=== PATIENT | male | born 1990 | race Caucasian/White ===

== ENCOUNTER 2016-09-12 11:59 | Emergency (ER) ==
[~2016-09-12] VITALS: Ht 175.3 cm; Wt 77.6 kg
== END 2016-09-12 12:39 | disposition left against medical advice (07) ==
LOC: M ED 12:34
DX: Z20.2 Contact with and (suspected) exposure to infections with a predominantly sexual mode of transmission (principal); Z53.29 Procedure and treatment not carried out because of patient's decision for other reasons

== ENCOUNTER 2016-12-11 12:36 | Inpatient (IN) | payer OTHER ==
[~2016-12-11] VITALS: Ht 177.8 cm; Wt 77.3 kg
[2016-12-11 13:44] LABS: MEAN CORPUSCULAR HEMOGLOBIN 32.6 pg (27.0-33.0); MEAN CORPUSCULAR HGB CONC 35.3 g/dl (32.0-36.5); MEAN CORPUSCULAR VOLUME 92.2 fl (80.0-96.0); RED CELL DISTRIBUTION WIDTH 12.5 % (11.5-14.5); WHITE BLOOD COUNT 5.8 K/mm3 (4.0-10.0)
[2016-12-11 14:13] LABS: METHADONE URINE NEGATIVE (NEGATIVE)
[2016-12-11 14:19] LABS: ALBUMIN 4.3 GM/DL (3.2-5.2); ALBUMIN/GLOBULIN RATIO 1.19 (1.00-1.93); ALKALINE PHOSPHATASE 99 U/L (45-117); ALT/SGPT 50 U/L (12-78); ANION GAP 12 MEQ/L (8-16); AST/SGOT 23 U/L (15-37); BILIRUBIN,DIRECT 0.4 MG/DL (0.0-0.2); BILIRUBIN,TOTAL 2.4 MG/DL (0.2-1.0); BLOOD UREA NITROGEN 15 MG/DL (7-18); CALCIUM LEVEL 9.2 MG/DL (8.5-10.1); CARBON DIOXIDE LEVEL 24 MEQ/L (21-32); CHLORIDE LEVEL 105 MEQ/L (98-107); CREATININE FOR GFR 1.22 MG/DL (0.70-1.30); GLOMERULAR FILTRATION RATE > 60.0 (>60); GLUCOSE, FASTING 87 MG/DL (70-105); POTASSIUM SERUM 3.7 MEQ/L (3.5-5.1); SODIUM LEVEL 141 MEQ/L (136-145); TOTAL PROTEIN 7.9 GM/DL (6.4-8.2)
[2016-12-11] MEDS ORDERED: MAALOX 30 ML SUSP *UDC PO PRN (15:45)
[2016-12-11] MEDS ORDERED: MOM 30ML SUSPENSION UDC PO PRN (15:45)
[2016-12-11 16:32] VITALS: BP 134/64
[2016-12-11] MEDS: SERTRALINE HCL 50 MG TAB PO SCH (17:23)
[2016-12-11] MEDS: NICOTINE 14 MG/24 HR TRANSDERMAL TD SCH (17:57)
[2016-12-11] MEDS: traZODone 50 MG TAB PO PRN (21:20)
[2016-12-12 06:28] VITALS: BP 140/63
[2016-12-12] MEDS: SERTRALINE HCL 50 MG TAB PO SCH (08:08)
[2016-12-12] MEDS: NICOTINE 14 MG/24 HR TRANSDERMAL TD SCH (08:08)
[2016-12-12 18:00] VITALS: BP 130/64
[2016-12-12] MEDS: traZODone 50 MG TAB PO PRN (22:27)
[2016-12-13 06:00] VITALS: BP 108/57
[2016-12-13 07:43] LABS: ALBUMIN 3.6 GM/DL (3.2-5.2); ALBUMIN/GLOBULIN RATIO 1.16 (1.00-1.93); BILIRUBIN,DIRECT 0.2 MG/DL (0.0-0.2); BILIRUBIN,TOTAL 1.1 MG/DL (0.2-1.0); TOTAL PROTEIN 6.7 GM/DL (6.4-8.2)
[2016-12-13] MEDS: SERTRALINE HCL 50 MG TAB PO SCH (08:20)
[2016-12-13] MEDS: NICOTINE 14 MG/24 HR TRANSDERMAL TD SCH (08:20)
--- NOTE | 2016-12-13 09:11 | MHHPE ---
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 The patient presented to the clinic at [facility] and stated that he was having suicidal thoughts with plans of overdosing on aspirin. The patient indicated that he has been feeling depressed for the past few months, but it is worse for the past 4-5 weeks. He states that he is feeling hopeless and helpless. Mood is about an 8/10, where the closer to 10 is the most depressed. He is having difficulty focusing and concentrating, but he is sleeping okay, but he says he is always waking up angry and irritable. Today, he is denying suicidal ideations, and he says that the thoughts just happened on two occasions , and they were brief. He describes ongoing stress. He says that grandparents who actually raised him came to visit him recently, and this is when he noticed that his grandmother's dementia has really progressed, and it is pretty severe now, as she could not even recognize him at times. There has been increased workload at work. In addition, he recently broke up with his girlfriend. They were together for 6 months, but he feels that his major stressor is that of his grandmother. The patient, more than usual for the past 3-4 days, since 12/08/2016, he admits that sometimes intoxication. The patient says that normally he will have one or two beers at most after he comes home from work. He does not think he has a problem. Apparently, the patient's feed inspection supervisor had indicated in the emergency room that she had seen a video of the patient this weekend; and apparently, the patient was very intoxicated. I did not elicit any hypomanic or manic or posttraumatic stress disorder (PTSD) or panic-like symptoms in this patient. PAST PSYCHIATRIC HISTORY: This patient has no prior history of psychiatric treatments, inpatient or outpatient. He has never made any suicide attempts. FAMILY HISTORY: This is negative for any psychiatric problems in his family. ABUSE HISTORY: The patient denies any history of any physical or sexual abuse. SUBSTANCE ABUSE HISTORY: This is as noted above. He does not think that he has a problem. MEDICAL HISTORY: The patient denies any problems. REVIEW OF SYSTEMS: The patient is dressed in hospital garments and appeared to be intact. NEUROMUSCULAR SYSTEM: There are no involuntary movements noted, and his gait was normal. All other systems were reviewed and found to be negative. VITAL SIGNS: Blood pressure 140/63, pulse 80, respirations 18. MENTAL STATUS EXAMINATION: This patient is alert and oriented times three. Eye contact is fairly good. Verbally spontaneous. There is no formal thought disorder noted. Psychomotor activity is normal. He says his mood is very depressed. His affect is full range and appropriate. He is not psychotic. He denies suicidal ideations today. He is denying homicidal ideations. Concentration is fair. Memory is intact. Insight and judgment poor. DIAGNOSIS: Major depressive disorder, single episode, severe, without psychotic symptoms. TREATMENT PLAN: At this point, we will further observe and evaluate this patient for continued resolution of suicidal ideations. We will continue to monitor this patient for continued depression. He has already been started on Zoloft 50 mg every day for his depression and anxiety, and we will titrate it as indicated, and we will treat him with trazodone 50 mg nightly as needed for insomnia; and the plan will be to discharge him with appropriate followup once stable. ERIN
--- NOTE | 2016-12-13 14:17 | HPE ---
DATE OF ADMISSION: 12/11/2016 HISTORY OF PRESENT ILLNESS: Please refer to the psychiatric history and evaluation for further details on this admission. This examination and history is intended for medial issues which may need treatment, followup, or consult on this 25-year-old male. ALLERGIES: No known allergies. PRIMARY CARE PROVIDER: Sabine Manning. 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 Smokes 1/2 pack of cigarettes per day. Recreational drug use; none. PAST MEDICAL HISTORY: Negative. PAST SURGICAL HISTORY: Negative. HOME MEDICATIONS: None. FAMILY HISTORY: Noncontributory. LABORATORY STUDIES: CBC normal. Electrolytes normal. Total bilirubin 2.4. Toxicology negative. 10-systems review is done, was unremarkable. Patient had no complaints. PHYSICAL EXAMINATION: 25-year-old cooperative male, no acute distress. Height 70 inches, weight is 71.4 kg, body mass index (BMI) 22.8, blood pressure 127/69, pulse 68, respirations 18, temperature 97.4. Patient is alert and oriented times three. Pupils equal and reactive to light. Extraocular muscles intact. Cornea and sclerae clear. Conjunctivae normal. No facial asymmetry. Pharynx, tongue, gums pink and moist. Tongue is midline. NECK: Is supple without lymphadenopathy or thyromegaly. No goiter. Carotids 2+ without bruit. CHEST: Clear to auscultation without wheeze or retraction. HEART: Is regular. ABDOMEN: Benign. Bowel sounds positive. GENITOURINARY ()/RECTAL: Not done. EXTREMITIES: Show equal strength, full range of motion. No cyanosis, clubbing, or edema. Peripheral pulses equal and palpable bilaterally. SKIN: Is warm and dry. IMPRESSION/PLAN: Psychiatric plan per psychiatry. No acute medical issues.
[2016-12-13 18:00] VITALS: BP 115/53
[2016-12-13] MEDS: busPIRone 10 MG TAB PO SCH (21:27)
[2016-12-13] MEDS: traZODone 100 MG TAB PO PRN (21:27)
--- NOTE | 2016-12-14 02:49 | IPN ---
DATE OF SERVICE: 12/13/2016 The patient today states that he is still feeling very depressed. Also did not sleep well last night. Did sleep better he says with the increase in the trazodone, he slept until about 4:30. At this point, he is still depressed. MENTAL STATUS EXAMINATION: He is alert and oriented times three. Eye contact is fair. Psychomotor activity is normal. He is verbally spontaneous. There is no formal thought disorder noted. Mood is depressed. Affect is full range and appropriate. Concentration is fair. Memory is intact. Insight and judgment is poor. DIAGNOSIS: Major depressive disorder, single episode, moderate to severe. TREATMENT PLAN: The patient will be further observed and evaluated for depressive symptomatology and further stabilization of his mood and further resolution of suicidal ideation. He was just started on Zoloft and so we will await further clinical response. The plan is to discharge him with appropriate followup once he is stable.
[2016-12-14 06:45] VITALS: BP 134/63
[2016-12-14] MEDS: SERTRALINE HCL 50 MG TAB PO SCH (08:13)
[2016-12-14] MEDS: busPIRone 10 MG TAB PO SCH ×2 (08:13→21:21)
[2016-12-14] MEDS: NICOTINE 14 MG/24 HR TRANSDERMAL TD SCH (08:14)
--- NOTE | 2016-12-14 17:26 | IPN ---
DATE: 12/14/2016 David Duke (Charles). VITAL SIGNS: Temperature 98.2, pulse 72, respirations 16, blood pressure 134/63. 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 The patient has been troubled by depression and suicidal ideation for approximately 3 months. He has had multiple stressors recently. His girlfriend just broke up with him. He just found out that his elderly grandmother is suffering from severe dementia; it was a big shock. He is worried about his father down in [place] who is a quadriplegic. The patient is not sleeping well. He has trouble falling asleep and staying asleep. He does have temper issues, which led to the break up with the girlfriend. His appetite is poor. He has lost 10 pounds recently. Concentration is poor at the job. The patient was started on Zoloft last week with minimal benefit. He would like to increase the dose, which appears reasonable. His father is on Zoloft and doing well. Another option might be switching to Effexor if the Zoloft is not effective. The patient was hearing some voices temporarily when he was more depressed and suicidal. The voices were telling him that he is worthless and that life is no good. Psychotic symptoms have resolved, however. MENTAL STATUS EXAMINATION: The patient is alert, oriented and cooperative. The patient appears anxious. Mood is mildly to moderately depressed. He is not suicidal. He is not homicidal. Insight and judgment appear reasonably good. The patient did have recent auditory hallucinations but not currently at this moment. No signs of paranoia or thought disorder. No signs of organicity. Grooming and hygiene is good. DIAGNOSIS: Major depression, single episode with brief psychotic symptoms. PLAN: Increase Zoloft to 100 mg every morning If psychotic symptoms return, adding low-dose Risperdal antipsychotic would be in order.
[2016-12-14 18:00] VITALS: BP 119/56
[2016-12-14] MEDS: traZODone 100 MG TAB PO PRN (22:40)
[2016-12-15 06:29] VITALS: BP 131/63
[2016-12-15] MEDS: NICOTINE 14 MG/24 HR TRANSDERMAL TD SCH (08:30)
[2016-12-15] MEDS: SERTRALINE HCL 50 MG TAB PO SCH (08:31)
[2016-12-15] MEDS: busPIRone 10 MG TAB PO SCH ×2 (08:31→21:06)
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
[2016-12-15 18:00] VITALS: BP 129/58
[2016-12-15] MEDS ORDERED: risperiDONE 0.5 MG TAB PO SCH (21:00)
[2016-12-16 06:25] VITALS: BP 123/58
[2016-12-16] MEDS: SERTRALINE HCL 50 MG TAB PO SCH (08:38)
[2016-12-16] MEDS: NICOTINE 14 MG/24 HR TRANSDERMAL TD SCH (08:38)
[2016-12-16] MEDS: busPIRone 10 MG TAB PO SCH (08:38)
[2016-12-16 18:00] VITALS: BP 120/66
[2016-12-16] MEDS: risperiDONE 1 MG TAB PO SCH (22:41)
[2016-12-16] MEDS: busPIRone 5 MG TAB PO SCH (22:41)
[2016-12-16] MEDS: traZODone 100 MG TAB PO PRN (22:46)
[2016-12-17 06:55] VITALS: BP 112/58
[2016-12-17] MEDS: SERTRALINE HCL 50 MG TAB PO SCH (08:12)
[2016-12-17] MEDS: busPIRone 5 MG TAB PO SCH ×2 (08:12→22:32)
[2016-12-17] MEDS: NICOTINE 14 MG/24 HR TRANSDERMAL TD SCH (08:50)
--- NOTE | 2016-12-17 10:15 | IPN ---
DATE: 12/16/2016 VITAL SIGNS: Temperature 99.0, pulse 72, respirations 20, blood pressure 123/58. CURRENT MEDICATIONS: - BuSpar 10 mg twice a day - Risperdal 0.5 mg at bedtime - Zoloft 100 mg every morning - trazodone 100 mg at bedtime as needed HISTORY OF PRESENT ILLNESS: Patient did not sleep well again last night and he woke up about 4:00 a.m. feeling sad and dysphoric. He did not fall back asleep. Yesterday he did take a long nap after meditation for 2 hours. This likely contributed to his insomnia last night. He did not take his trazodone last night either. Patient does feel groggy in the morning for about 10 minutes when he wakes up from the trazodone, but this is tolerable. He had no side effects on the Risperdal. He does tend to worry a lot. He is tolerating the BuSpar for which the dose is still low. He feels powerless to help his family down in [place]. He is looking to a possible transfer down to the [place] area, which is being investigated by his Chain of Command. MENTAL STATUS EXAMINATION: Patient is alert, oriented and cooperative. Patient is still sad and depressed, moderately so. Insight and judgment appear good. Not currently hearing voices. No paranoia or thought disorder. Grooming and hygiene remain good. DIAGNOSIS: Major depression, single episode, moderate severity with recent psychosis. PLAN: Increase BuSpar to 15 mg twice a day. Increase Risperdal to 1 mg by mouth at bedtime. Patient encouraged to take his trazodone tonight to help with sleep. [facility]ITALVicky
[2016-12-17 18:00] VITALS: BP 116/63
--- NOTE | 2016-12-17 21:58 | IPN ---
DATE: 12/17/2016 VITAL SIGNS: Temperature 99.8, pulse 82, respirations 16, blood pressure 112/58. CURRENT MEDICATIONS: - BuSpar 15 mg twice a day - risperidone 1 mg nightly - Zoloft 100 mg every morning - trazodone 100 mg nightly as needed HISTORY OF PRESENT ILLNESS: The patient states that his mood is a bit better. He is able to focus better. He still wakes up in the morning with negative thoughts and dysphoria. His day improves, however, as it goes on. He does feel a bit groggy initially in the morning from the trazodone, but this is tolerable. His appetite is fine. He still worries about his family out of state. The patient is tolerating the Risperdal well. He claims that after he took it last night, he actually felt happy for a period of time. He felt more "mellow." The patient is active in the milieu. He is tolerating the BuSpar well. MENTAL STATUS EXAMINATION: The patient is alert, oriented and cooperative. Affect is somewhat brighter today. He is less depressed. He is not suicidal. No current signs of dangerousness. He is currently not psychotic, not hearing voices. No paranoia or thought disorder. Grooming and hygiene are quite good. No signs of impulsivity. DIAGNOSIS: Major depression, single episode, moderate severity with recent psychosis. PLAN: Continue current psychotropics.
[2016-12-17] MEDS: risperiDONE 1 MG TAB PO SCH (22:33)
[2016-12-17] MEDS: traZODone 100 MG TAB PO PRN (22:58)
[2016-12-18 07:30] VITALS: BP 117/59
[2016-12-18] MEDS: NICOTINE 14 MG/24 HR TRANSDERMAL TD SCH (08:14)
[2016-12-18] MEDS: busPIRone 5 MG TAB PO SCH ×2 (08:15→23:38)
[2016-12-18] MEDS: SERTRALINE HCL 50 MG TAB PO SCH (08:15)
[2016-12-18 18:43] VITALS: BP 117/60
[2016-12-18] MEDS: risperiDONE 2 MG TAB PO SCH (23:38)
[2016-12-18] MEDS: traZODone 100 MG TAB PO PRN (23:38)
--- NOTE | 2016-12-19 00:25 | IPN ---
DATE: 12/18/2016 VITAL SIGNS: Temperature 98.0, pulse 77, respirations 16, blood pressure 117/59. CURRENT MEDICATIONS: - BuSpar 15 mg twice a day - Risperdal 1 mg nightly - Zoloft 100 mg every morning - trazodone 100 mg nightly as needed HISTORY OF THE PRESENT ILLNESS: The patient had a bad nightmare last night. He woke up feeling panicky and shaky. He had a brief relapse of the auditory hallucinations, which have the usual content that he would never be good enough and is worthless. He fell asleep fine last night. His appetite is good. His concentration was poor this morning. There were no situational stressors that may have triggered it. He does get panic attacks like this 2-3 times per year, which will wake him up out of a sound sleep. The patient has a chronic bad habit of wringing his hands constantly while he walks or paces. He is no longer doing this since being on his psychotropics, which he is pleased about. The patient is still worried about his family down in [place] and wishes that he could help them more. No side effects on the medications so far. MENTAL STATUS EXAMINATION: The patient is alert, oriented and cooperative today. The patient reports moderate anxiety and mild to moderate depression with some dysphoria. He is not suicidal, not homicidal. Insight and judgment appear good. The patient did have a relapse with the auditory hallucinations. No signs of paranoia, thought disorder. DIAGNOSIS: Major depression, single episode, moderate severity with psychotic features. PLAN: Increase Risperdal to 2 mg nightly. Monitor for any signs of extrapyramidal symptoms (EPS) or akathisia.
[2016-12-19 06:47] VITALS: BP 144/61
[2016-12-19] MEDS: SERTRALINE HCL 50 MG TAB PO SCH (08:06)
[2016-12-19] MEDS: busPIRone 5 MG TAB PO SCH ×2 (08:07→23:08)
[2016-12-19] MEDS: NICOTINE 14 MG/24 HR TRANSDERMAL TD SCH (08:07)
[2016-12-19 18:00] VITALS: BP 105/53
[2016-12-19] MEDS: risperiDONE 2 MG TAB PO SCH (23:07)
[2016-12-19] MEDS: traZODone 100 MG TAB PO PRN (23:07)
[2016-12-20 06:25] VITALS: BP 120/56
[2016-12-20] MEDS: busPIRone 5 MG TAB PO SCH ×2 (08:00→22:02)
[2016-12-20] MEDS: SERTRALINE HCL 50 MG TAB PO SCH (08:00)
[2016-12-20] MEDS: NICOTINE 14 MG/24 HR TRANSDERMAL TD SCH (08:01)
[2016-12-20 18:00] VITALS: BP 126/61
[2016-12-20] MEDS: risperiDONE 2 MG TAB PO SCH (22:01)
[2016-12-20] MEDS: zolPIDEM TARTRATE 5 MG TAB PO SCH (22:01)
[2016-12-21 06:00] VITALS: BP 131/72
[2016-12-21] MEDS: busPIRone 5 MG TAB PO SCH ×2 (08:14→21:45)
[2016-12-21] MEDS: NICOTINE 14 MG/24 HR TRANSDERMAL TD SCH (08:14)
[2016-12-21] MEDS ORDERED: SERTRALINE 100 MG TAB PO SCH (09:00)
--- NOTE | 2016-12-21 13:41 | IPN ---
DATE: 12/21/2016 VITAL SIGNS: Temperature 99.2, pulse 69, respirations 18, blood pressure 131/72. CURRENT MEDICATIONS: - Zoloft 100 mg every morning - Ambien 5 mg at bedtime - Risperdal 2 mg at bedtime - BuSpar 15 mg twice a day HISTORY OF PRESENT ILLNESS: Patient was given Ambien over the weekend which was helpful for sleep. He still feels mildly to moderately depressed. Friends were supposed to visit this weekend to bring him in clothes but they were not able to do so. He has no family here in town as he is from [place]. He is still worried about his family back home. He does report some gradual improvement in his anxiety. He feels a bit more relaxed. He is tolerating the medications well. He is willing to increase his dose of the Zoloft. MENTAL STATUS EXAMINATION: Patient is alert, oriented and cooperative. Anxiety and depression are mild to moderate range. He is not currently suicidal or homicidal. Insight and judgment appear good today. No current psychotic symptoms. He is not hearing voices. No paranoia or thought disorder. DIAGNOSIS: Major depression, single episode, moderate in severity with psychotic features. PLAN: Continue present management. Increase Zoloft up to 100 mg every morning and one other option might be switching to Effexor if the patient does not improve on the Zoloft.
[2016-12-21 18:00] VITALS: BP 130/61
[2016-12-21] MEDS: ACETAMINOPHEN TAB 650MG DOSE (2X325MG) PO PRN (20:19)
[2016-12-21] MEDS: zolPIDEM TARTRATE 5 MG TAB PO SCH (21:44)
[2016-12-21] MEDS: risperiDONE 2 MG TAB PO SCH (21:45)
[2016-12-22 06:37] VITALS: BP 148/65
[2016-12-22] MEDS: busPIRone 5 MG TAB PO SCH ×2 (08:08→21:15)
[2016-12-22] MEDS: NICOTINE 14 MG/24 HR TRANSDERMAL TD SCH (08:08)
[2016-12-22] MEDS ORDERED: SERTRALINE HCL 50 MG TAB PO SCH (09:00)
--- NOTE | 2016-12-22 11:42 | IPN ---
DATE: 12/22/2016 VITAL SIGNS: Temperature 98.2, pulse 84, respirations 19, blood pressure 148/65. CURRENT MEDICATIONS: - Zoloft 150 mg in the morning - Ambien 5 mg at night - Risperdal 2 mg at night - BuSpar 15 mg twice a day HISTORY OF PRESENT ILLNESS: The patient still reports dysphoria and depressive symptoms that wax and wane throughout the day. They are less prominent than before. He has found the BuSpar helpful for his anxiety symptoms. He is not as worried. He does speak to his family by phone on a day basis. His appetite is good. He sleeps fairly well with the Ambien. His level of energy is marginal. He denies any side effects on the Zoloft. We discussed a possible switch to Effexor if the Zoloft is not efficacious. He prefers to stay with the Zoloft for the time being. He has had no relapse in his psychotic symptoms. MENTAL STATUS EXAMINATION: The patient is alert, oriented and cooperative. The patient still reports anxiety and depression, mild to moderate range. He is not currently suicidal. He is not homicidal. Insight and judgment appear reasonably good. No recent psychotic symptoms. He is not hearing voices. No signs of impulsivity or dangerousness. Memory function is intact. DIAGNOSES: 1. Major depression, single episode. Mild to moderate in severity with a history of psychosis. PLAN: Continue current psychotropics.
[2016-12-22 18:00] VITALS: BP 123/57
[2016-12-22] MEDS: risperiDONE 2 MG TAB PO SCH (21:15)
[2016-12-22] MEDS: zolPIDEM TARTRATE 5 MG TAB PO SCH (21:15)
[2016-12-23 06:40] VITALS: BP 111/54
[2016-12-23] MEDS: NICOTINE 14 MG/24 HR TRANSDERMAL TD SCH (08:09)
[2016-12-23] MEDS: busPIRone 5 MG TAB PO SCH ×2 (08:09→22:16)
[2016-12-23] MEDS ORDERED: SERTRALINE 100 MG TAB PO SCH (09:00)
[2016-12-23] MEDS ORDERED: VENLAFAXINE **XR** 37.5 MG CAPSULE PO ONE (09:00)
--- NOTE | 2016-12-23 13:49 | IPN ---
DATE: 12/23/2016 VITAL SIGNS: Temperature 98.3, pulse 79, respirations 20, blood pressure 111/54. CURRENT MEDICATIONS: - Zoloft 100 mg in the morning - Ambien 5 mg at night - Risperdal 2 mg at night - BuSpar 15 mg twice a day HISTORY OF PRESENT ILLNESS: The patient was quite sedated yesterday on Zoloft 150 mg every morning. He slept for three hours during the daytime which is unusual for him. The dose was then lowered this morning. He still feels depressed. The patient has been here for almost two weeks now with marginal benefit from the Zoloft. We discussed a switch to Effexor. Side effect profile reviewed. We discussed the possibility of longer term care inpatient program down in [place]. The patient will consider this option. The patient is being switched to voluntary patient here today. The patient states he does have problems with his concentration, that was a problem back in school as well. He always had problems with his attention and with focusing. Side effect profile of the Effexor reviewed, including the risk of suicidal ideation. Hopefully, the Effexor will help him focus and concentrate better. MENTAL STATUS EXAMINATION: The patient is alert, oriented and cooperative. The patient is still anxious with mild to moderate depression. He is not suicidal. No signs of dangerousness. Insight and judgment remains good. No recent psychotic symptoms for the past three to four days. DIAGNOSIS: Major depression, single episode, with recent psychosis. PLAN: Wean off Zoloft gradually. Start titrating Effexor upwards. Monitor for any suicidal ideation and/or potential. Switch to voluntary status.
[2016-12-23 18:16] VITALS: BP 120/66
[2016-12-23] MEDS: ACETAMINOPHEN TAB 650MG DOSE (2X325MG) PO PRN (21:15)
[2016-12-23] MEDS: risperiDONE 2 MG TAB PO SCH (22:16)
[2016-12-23] MEDS: zolPIDEM TARTRATE 5 MG TAB PO SCH (22:16)
[2016-12-24 07:08] VITALS: BP 136/63
[2016-12-24] MEDS: busPIRone 5 MG TAB PO SCH ×2 (08:23→22:14)
[2016-12-24] MEDS: NICOTINE 14 MG/24 HR TRANSDERMAL TD SCH (08:24)
[2016-12-24] MEDS: VENLAFAXINE **XR** 75MG CAPSULE PO SCH (08:56)
[2016-12-24] MEDS ORDERED: SERTRALINE HCL 50 MG TAB PO SCH (09:00)
--- NOTE | 2016-12-24 15:37 | IPN ---
DATE: 12/24/2016 VITAL SIGNS: Temperature 98.3, pulse 67, respirations 16. Blood pressure 136/63. CURRENT MEDICATIONS: - Zoloft 50 mg every a.m. - Effexor XR 75 mg every a.m. - Ambien 5 mg at bedtime - Risperdal 2 mg at bedtime - BuSpar 13 mg twice a day HISTORY OF PRESENT ILLNESS: The patient is tolerating the Effexor well. He has had no withdrawal symptoms reducing the Zoloft. No nausea and vomiting noticed. No suicidal ideation starting the new antidepressant. His appetite was poor yesterday at dinner time, but he forced himself to eat. He did not sleep as well last night. He would like to go back on the trazodone as needed to take in combination with the Ambien. No new situational stressors. Chain of command meeting is set up for next Wednesday. Plans are made for him to go to intensive outpatient program and not to go to [place] for [facility] care. The patient feels comfortable with this option. MENTAL STATUS EXAM: The patient is alert, oriented and cooperative. Anxiety is mild. Depression is mild to moderate. Mood waxes and wanes throughout the daytime. He is not suicidal. He is not homicidal. Insight and judgment remains quite good. No recent psychosis. DIAGNOSES: Major depression, single episode, with history of psychosis. PLAN: Wean off Zoloft, Effexor dose gradually being increased as tolerated. Add trazodone as needed for sleep.
[2016-12-24 18:00] VITALS: BP 137/68
[2016-12-24] MEDS: traZODone 100 MG TAB PO PRN (22:14)
[2016-12-24] MEDS: risperiDONE 2 MG TAB PO SCH (22:14)
[2016-12-24] MEDS: zolPIDEM TARTRATE 5 MG TAB PO SCH (22:14)
[2016-12-25 06:29] VITALS: BP 145/63
[2016-12-25] MEDS: VENLAFAXINE **XR** 75MG CAPSULE PO SCH (08:08)
[2016-12-25] MEDS: NICOTINE 14 MG/24 HR TRANSDERMAL TD SCH (08:08)
[2016-12-25] MEDS: busPIRone 5 MG TAB PO SCH ×2 (08:08→22:54)
[2016-12-25 18:00] VITALS: BP 121/63
[2016-12-25] MEDS: risperiDONE 2 MG TAB PO SCH (22:53)
[2016-12-25] MEDS: traZODone 100 MG TAB PO PRN (22:53)
[2016-12-26 06:29] VITALS: BP 109/60
[2016-12-26] MEDS: VENLAFAXINE **XR** 75MG CAPSULE PO SCH (08:04)
[2016-12-26] MEDS: NICOTINE 14 MG/24 HR TRANSDERMAL TD SCH (08:04)
[2016-12-26] MEDS: busPIRone 5 MG TAB PO SCH ×2 (08:05→21:32)
--- NOTE | 2016-12-26 09:42 | IPN ---
DATE: 12/25/2016 VITAL SIGNS: Temperature 99.5. Pulse 84. Respirations 16. Blood pressure 145/63. CURRENT MEDICATIONS: - Effexor XR 75 mg every morning - trazodone 100 mg at bedtime as needed - Ambien 5 mg at bedtime - Risperdal 2 mg at bedtime - BuSpar 15 mg twice a day HISTORY OF PRESENT ILLNESS: The patient requests that the Ambien be discontinued. He is happy with the trazodone at bedtime for sleep. He does feel a little bit groggy from it in the morning, but this is quite brief. He is tolerating the Effexor well. He has no side effects from it, but no major benefits either. The patient is reading a lot. He enjoys this activity. His chain of command meeting is scheduled for Wednesday. He is apprehensive and anxious about possible discharge next week. The patient has been switched to voluntary basis. He has not shown any signs of being a danger to self or others. MENTAL STATUS EXAMINATION: The patient is alert, oriented and cooperative. Anxiety is mild. Depression is mild. He is not suicidal. Judgment appears quite good. No signs of impulsivity. No signs of dangerousness. He is not psychotic. DIAGNOSIS: Major depression, single episode, with a history of psychosis. PLAN: Increase the Effexor again up to 150 mg every morning. Ambien discontinued per his request. Chain of command meeting for the first thing on Wednesday.
[2016-12-26 18:00] VITALS: BP 114/57
[2016-12-26] MEDS: risperiDONE 2 MG TAB PO SCH (21:32)
[2016-12-26] MEDS: traZODone 100 MG TAB PO PRN (22:54)
[2016-12-27 06:57] VITALS: BP 122/61
[2016-12-27] MEDS: NICOTINE 14 MG/24 HR TRANSDERMAL TD SCH (08:25)
[2016-12-27] MEDS: VENLAFAXINE **XR** 75MG CAPSULE PO SCH (08:26)
[2016-12-27] MEDS: busPIRone 5 MG TAB PO SCH ×2 (08:26→20:20)
[2016-12-27] MEDS ORDERED: hydrOXYzine 50 MG TAB PO ONE (11:00)
[2016-12-27 18:00] VITALS: BP 123/68
[2016-12-27] MEDS: risperiDONE 2 MG TAB PO SCH (20:20)
[2016-12-27] MEDS: traZODone 100 MG TAB PO PRN (22:10)
[2016-12-28 07:30] VITALS: BP 135/76
[2016-12-28] MEDS: NICOTINE 14 MG/24 HR TRANSDERMAL TD SCH (08:53)
[2016-12-28] MEDS: busPIRone 5 MG TAB PO SCH ×2 (08:55→21:03)
[2016-12-28] MEDS: VENLAFAXINE **XR** 75MG CAPSULE PO SCH (08:56)
[2016-12-28] MEDS ORDERED: hydrOXYzine 50 MG TAB PO PRN (10:00)
[2016-12-28 18:14] VITALS: BP 105/60
--- NOTE | 2016-12-28 19:55 | IPN ---
DATE: 12/28/2016 VITAL SIGNS: Temperature 98.1, pulse 79, respirations 16, blood pressure 135/76. CURRENT MEDICATIONS: - Effexor XR 150 mg every morning - trazodone 50 mg nightly as needed - Risperdal 2 mg nightly - BuSpar 15 mg twice a day HISTORY OF THE PRESENT ILLNESS: The patient was anxious about the chain of command meeting held this morning. He did have a panic attack yesterday. He was worried about it. I did attend part of the meeting this morning, which went well. Plans are in place for the patient to followup at [facility] on with intensive outpatient program (IOP) to start next Wednesday. The patient is somewhat apprehensive about the change. His anxiety is mild to moderate. His depression, however, is mild. He is tolerating the higher dose of Effexor well. He has no complaints about it. No gastrointestinal (GI) symptoms. No suicidal ideation with the product pharmaceutical. His appetite has been good. He sleeps well at night with the as needed trazodone. No other complaints. MENTAL STATUS EXAMINATION: Mood and affect appears much improved after the chain of command meeting. He is less anxious and worried. He feels hopeful about the future, though somewhat apprehensive. He is not suicidal. Depression is minimal. Grooming and hygiene is quite good. He is not psychotic, not hearing voices. No paranoia or thought disorder. No signs of impulsivity. DIAGNOSIS: Major depression, single episode, with psychotic features. JAE PLAN: Continue medication Atarax prescribed as needed for anxiety. Staff working on discharge planning for Wednesday. ERIN
[2016-12-28] MEDS: risperiDONE 2 MG TAB PO SCH (21:03)
[2016-12-28] MEDS: traZODone 100 MG TAB PO PRN (22:38)
[2016-12-29 06:23] VITALS: BP 135/62
[2016-12-29] MEDS: busPIRone 5 MG TAB PO SCH ×2 (08:23→21:47)
[2016-12-29] MEDS: VENLAFAXINE **XR** 75MG CAPSULE PO SCH (08:23)
[2016-12-29] MEDS: NICOTINE 14 MG/24 HR TRANSDERMAL TD SCH (08:24)
[2016-12-29 18:11] VITALS: BP 120/58
--- NOTE | 2016-12-29 19:54 | IPN ---
DATE: 12/29/2016 VITAL SIGNS: Temperature 99.8, pulse 87, respirations 16, blood pressure 135/62. CURRENT MEDICATIONS: - Effexor XR 150 mg every morning - trazodone 100 mg at bedtime as needed - Risperdal 2 mg at bedtime - BuSpar 15 mg twice a day HISTORY OF PRESENT ILLNESS: Patient now worried about discharge plans for tomorrow. He is uncertain about the future. He does admit to a history of worry. He does appear to reach criteria for generalized anxiety disorder. 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 His appetite is good. He is sleeping very well. He is no longer taking naps during the daytime. No other complaints. MENTAL STATUS EXAMINATION: Affect does seem brighter, though he is still worried about discharge. Mood appears reasonably good. He is not suicidal. No signs of dangerousness. He does appear to have chronic anxiety and upgrade worry. No signs of psychosis. No signs of impulsivity. Grooming and hygiene is quite good. DIAGNOSES: 1. Major depression, single episode with psychotic features. 2. Generalized anxiety disorder. PLAN: Continue psychotropics, with discharge scheduled for Wednesday.
[2016-12-29] MEDS: risperiDONE 2 MG TAB PO SCH (21:48)
[2016-12-29] MEDS: traZODone 100 MG TAB PO PRN (22:32)
[2016-12-30 06:34] VITALS: BP 137/78
[2016-12-30] MEDS: NICOTINE 14 MG/24 HR TRANSDERMAL TD SCH (08:10)
[2016-12-30] MEDS: VENLAFAXINE **XR** 75MG CAPSULE PO SCH (08:11)
[2016-12-30] MEDS: busPIRone 5 MG TAB PO SCH (08:11)
[2016-12-30] MEDS ORDERED: BUSP15TA47 PO (09:27)
[2016-12-30] MEDS ORDERED: VENL150C43 PO (09:27)
[2016-12-30] MEDS ORDERED: RISP2TAB3 PO (09:27)
[2016-12-30] MEDS ORDERED: TRAZ1TAB14 PO (09:27)
[2016-12-30] MEDS ORDERED: HYDRO50TAB PO (09:27)
--- NOTE | 2016-12-31 20:42 | MHDS ---
DATE OF ADMISSION: 12/11/2016 DATE OF DISCHARGE: 12/30/2016 VITAL SIGNS: Temperature 97.6, pulse 78, respirations 19, blood pressure 137/78. LABS: CBC and differential within normal limits. Chemistry survey within normal limits except for elevated total bilirubin at 2.4. Toxicology negative. DISCHARGE MEDICATIONS: - Effexor XR 150 mg every a.m. - trazodone 100 mg at bedtime as needed - Risperdal 2 mg at bedtime - BuSpar 15 mg twice a day DISCHARGE DIAGNOSES: Major depression, single episode, with psychotic features. Generalized anxiety disorder. CHIEF COMPLAINT: Suicidal ideation with plans of overdosing on aspirin. HISTORY OF PRESENT ILLNESS: The patient was seen by Dr. Marquez on admission on December 12, 2016. The patient had been depressed for several months prior to admission, was feeling helpless and hopeless. The patient described various stressors. His grandparents visited recently. His grandmother is developing dementia and did not recognize him. He complains of increased job stress. He recently broke up with his girlfriend. The patient was started on Zoloft 50 mg per day by Dr. Marquez. PROGRESS ON THE UNIT: The patient continued to show signs of depression while on the unit. He was seen by myself for the first time on December 14 with a diagnosis of major depression. The patient did report auditory hallucinations. The voices were telling him that he was worthless and that life is not worth living. His Zoloft was increased gradually and was initially well tolerated. He was started on Risperdal 0.5 mg at bedtime. He still had some episodic psychotic symptoms so the Risperdal was gradually titrated up to 2 mg at bedtime. This was tolerated well. He was engaged in the hospital milieu. Zoloft dose was increased further. He still had the depressive symptoms. with increased dose of 150 mg per day of Zoloft he felt quite sedated taking a three hour nap during the daytime. He was then rapidly weaned off the Zoloft and placed on Effexor which was much better tolerated. His moods seem to brighten. He did show anxiety symptoms while on the unit. He appeared quite worried and apprehensive and was given a diagnosis of generalized anxiety disorder. The patient was maintained on BuSpar 15 mg twice a day with marginal benefit. The patient appeared to reach maximal hospital benefit. Plans were made for him to be discharged back to [place] to their IOP program. The patient felt apprehensive about this, but at no point was he suicidal. The patient had his chain of command. He was quite anxious the day before and had a panic attack, however, the meeting itself was uneventful and well tolerated. The patient felt supported by the [employer] community and felt reasonably confident upon time of discharge. MENTAL STATUS EXAM: At time of discharge mood and affect were much improved. The patient still appeared somewhat anxious and worried, but depression was minimal. Affect appeared reasonably full range. He was not suicidal, not homicidal. He was not psychotic. Not hearing voices. No paranoia or thought disorder. Grooming and hygiene was quite good. Eye contact was good. No signs of impulsivity or dangerousness. ASSESSMENT: The patient appeared to have poor response to Zoloft but did show some improvement on the Effexor, which was rapidly titrated upwards and appeared to have reached maximal hospital benefit. half-way care in [place] was considered but it appeared appropriate for him to attend the IOP program first. The patient was agreeable to this discharge plan. Discharged back to [place] with his chain of command with outpatient followup as mentioned above. ERIN
== END 2016-12-30 12:45 | disposition home or self-care (01) | DRG 885 ==
LOC: M ED 12:36 → M ED INP 15:42 → M PSY 16:18
PROVIDERS: ADMIT Psychiatry & Neurology Psychiatry; ATTEND Psychiatry & Neurology Psychiatry
DX: F32.3 Major depressive disorder, single episode, severe with psychotic features (principal); F17.210 Nicotine dependence, cigarettes, uncomplicated; F41.1 Generalized anxiety disorder

== ENCOUNTER 2017-04-21 16:26 | Emergency (ER) | payer OTHER ==
[~2017-04-21 16:26] MED LIST: BUSP15TA47 PO; HYDRO50TAB PO; RISP2TAB3 PO; TRAZ1TAB14 PO; VENL150C43 PO
[2017-04-21] MEDS ORDERED: ABIL10TA9 PO (16:59)
[2017-04-21] MEDS ORDERED: ZOLO50TA PO (16:59)
[2017-04-21] MEDS ORDERED: ISOVUE-370 76% 100ML VIAL (Q9967) As Ordered ONE (18:27)
[2017-04-21] MEDS ORDERED: MORPHINE 2 MG/ML 1ML SYRINGE As Ordered ONE (18:29)
[2017-04-21] MEDS ORDERED: NS 1,000 ML IV ONE (18:30)
[2017-04-21] MEDS ORDERED: MORPHINE 2 MG/ML 1ML SYRINGE IV ONE (18:30)
[2017-04-21 19:02] LABS: MEAN CORPUSCULAR HEMOGLOBIN 31.5 pg (27.0-33.0); MEAN CORPUSCULAR HGB CONC 34.6 g/dl (32.0-36.5); MEAN CORPUSCULAR VOLUME 90.9 fl (80.0-96.0); PLATELET COUNT, AUTOMATED 176 10^3/uL (150-450); RED CELL DISTRIBUTION WIDTH 12.3 % (11.5-14.5); WHITE BLOOD COUNT 12.2 10^3/uL (4.0-10.0)
[2017-04-21 19:57] LABS: ANION GAP 7 MEQ/L (8-16); BLOOD UREA NITROGEN 19 MG/DL (7-18); CALCIUM LEVEL 8.8 MG/DL (8.5-10.1); CARBON DIOXIDE LEVEL 25 MEQ/L (21-32); CHLORIDE LEVEL 109 MEQ/L (98-107); CREATININE FOR GFR 1.08 MG/DL (0.70-1.30); GLOMERULAR FILTRATION RATE > 60.0 (>60); GLUCOSE, FASTING 95 MG/DL (70-105); POTASSIUM SERUM 3.7 MEQ/L (3.5-5.1); SODIUM LEVEL 141 MEQ/L (136-145)
[2017-04-21] MEDS ORDERED: NORCO 5/325MG TABLET (BULK FOR ED) PO ONE (21:30)
[2017-04-21] MEDS ORDERED: KETOROLAC 30 MG/ML VIAL (J1885) IV ONE (21:30)
[2017-04-21] MEDS ORDERED: PERCOCET 5MG/325MG TAB As Ordered ONE (21:44)
[2017-04-21] MEDS ORDERED: KETOROLAC 30 MG/ML VIAL (J1885) As Ordered ONE (21:44)
[2017-04-21 22:12] VITALS: BP 117/66
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
== END 2017-04-21 22:16 | disposition home or self-care (01) ==
LOC: M ED 16:26
DX: Z04.1 Encounter for examination and observation following transport accident (principal); S40.812A Abrasion of left upper arm, initial encounter; R07.1 Chest pain on breathing; V49.59XA Passenger injured in collision with other motor vehicles in traffic accident, initial encounter; Y92.410 Unspecified street and highway as the place of occurrence of the external cause; Y93.89 Activity, other specified; Y99.8 Other external cause status; M79.1 Myalgia; F17.210 Nicotine dependence, cigarettes, uncomplicated
CPT/HCPCS: 36415; 71260; 74177; 80048; 85027; 96361; 96374; 96375; 99284; J1885; Q9967

== ENCOUNTER 2017-06-23 15:23 | Emergency (ER) | payer OTHER ==
[2017-06-23 17:10] LABS: HEMATOCRIT 43.3 % (42.0-52.0); HEMOGLOBIN 15.2 g/dl (14.0-18.0); MEAN CORPUSCULAR HEMOGLOBIN 31.5 pg (27.0-33.0); MEAN CORPUSCULAR HGB CONC 35.1 g/dl (32.0-36.5); MEAN CORPUSCULAR VOLUME 89.8 fl (80.0-96.0); PLATELET COUNT, AUTOMATED 220 10^3/uL (150-450); RED BLOOD COUNT 4.82 10^6/uL (4.30-6.10); RED CELL DISTRIBUTION WIDTH 12.9 % (11.5-14.5); WHITE BLOOD COUNT 7.8 10^3/uL (4.0-10.0)
[2017-06-23 17:34] LABS: AMPHETAMINES LEVEL URINE NEGATIVE (NEGATIVE); BARBITURATES URINE NEGATIVE (NEGATIVE); BENZODIAZEPINES URINE NEGATIVE (NEGATIVE); CANNABINOIDS URINE NEGATIVE (NEGATIVE); COCAINE METABOLITE URINE NEGATIVE (NEGATIVE); METHADONE URINE NEGATIVE (NEGATIVE); OPIATES URINE NEGATIVE (NEGATIVE); PHENCYCLIDINE URINE NEGATIVE (NEGATIVE)
[2017-06-23 17:50] LABS: ALBUMIN 3.9 GM/DL (3.2-5.2); ALBUMIN/GLOBULIN RATIO 1.05 (1.00-1.93); ALKALINE PHOSPHATASE 104 U/L (45-117); ALT/SGPT 71 U/L (12-78); ANION GAP 9 MEQ/L (8-16); AST/SGOT 31 U/L (7-37); BILIRUBIN,DIRECT 0.1 MG/DL (0.0-0.2); BILIRUBIN,TOTAL 0.6 MG/DL (0.2-1.0); BLOOD UREA NITROGEN 15 MG/DL (7-18); CARBON DIOXIDE LEVEL 26 MEQ/L (21-32); CHLORIDE LEVEL 107 MEQ/L (98-107); CREATININE FOR GFR 1.16 MG/DL (0.70-1.30); ETHYL ALCOHOL (ETHANOL) < 0.003 % (0.000-0.010); GLOMERULAR FILTRATION RATE > 60.0 (>60); GLUCOSE, FASTING 95 MG/DL (70-105); POTASSIUM SERUM 4.1 MEQ/L (3.5-5.1); SALICYLATE LEVEL 2.4 MG/DL (5.0-30.0); SODIUM LEVEL 142 MEQ/L (136-145); TOTAL PROTEIN 7.6 GM/DL (6.4-8.2)
[2017-06-23 17:51] LABS: ACETAMINOPHEN LEVEL < 2.0 UG/ML (10.0-30.0)
== END 2017-06-23 17:45 | disposition home or self-care (01) ==
LOC: M ED 15:23
DX: F33.9 Major depressive disorder, recurrent, unspecified (principal); Z79.899 Other long term (current) drug therapy
CPT/HCPCS: G0480